=== PATIENT | female | born 1950 ===

== ENCOUNTER 2024-09-10 14:05 | Outpatient (CLI) | payer MEDICARE, SELFPAY ==
--- NOTE | 2024-09-10 14:14 | XR_ITS ---
WS: [id number] SCREENING DEXA SCAN [employer] CLINICAL INFORMATION: SCREENING FOR OSTEOPOROSIS COMPARISON: 2019 FINDINGS: The L1-L4 bone mineral density measures 1.008 g/cm2. This corresponds to a T score score of -1.4 and Z score of -0.4. Left femoral neck bone mineral density measures 0.911 g/cm2. This corresponds to a T score of -0.8 and Z score of 0.4. Right femoral neck bone mineral density measures 0.954 g/cm2. This corresponds to a T score -0.4of and Z score of 0.7. Mean femoral neck bone mineral density measures 0.932 g/cm2. This corresponds to a T score of -0.6 and Z score of 0.5. XR/XR DEXA axial skeleton* [id number] IMPRESSION: Osteopenia lumbar spine. Normal bone mineralization femoral necks. Patient's FRAX calculated 10 year probability for major osteoporotic fracture i s 12.6% and osteoporotic hip fracture is 2.8%. Bone mineral density lumbar spine increased 3.1% Bone density femoral necks decreased -3.4%
== END 2024-09-10 14:06 | disposition home or self-care (01) ==
PROVIDERS: Family Provider Internal Medicine; Visit Provider Nurse Practitioner Family
DX: Z78.0 Asymptomatic menopausal state (principal); M85.88 Other specified disorders of bone density and structure, other site
CPT/HCPCS: 77080